=== PATIENT | male | born 1990 | race Caucasian/White ===

== ENCOUNTER 2021-10-19 17:47 | Emergency (ER) | payer SELFPAY ==
[~2021-10-19] VITALS: Ht 182.9 cm; Wt 70.3 kg
[2021-10-19 17:55] VITALS: BP 130/80
[2021-10-19] MEDS ORDERED: LORazepam 0.5 MG TAB ONE (19:01)
== END 2021-10-20 00:43 | disposition left against medical advice (07) ==
LOC: EDBD 17:47 → ER 17:47
DX: K92.2 Gastrointestinal hemorrhage, unspecified (principal); Z53.21 Procedure and treatment not carried out due to patient leaving prior to being seen by health care provider